=== PATIENT | female | born 1995 | race Caucasian/White ===

== ENCOUNTER 2024-09-12 21:49 | Emergency (ER) | payer BC ==
[~2024-09-12] VITALS: Ht 162.6 cm; Wt 74.8 kg
[2024-09-12 22:05] VITALS: BP 132/81; TEMP 98.5; O2SAT 98
[2024-09-13] MEDS ORDERED: NAPR-1009 PO (00:14)
[2024-09-13 03:09] LABS: PREGNANCY TEST URINE QUAL NEGATIVE (NEGATIVE)
== END 2024-09-13 00:24 | disposition home or self-care (01) ==
LOC: ER 21:56
DX: S99.821A Other specified injuries of right foot, initial encounter (principal); W11.XXXA Fall on and from ladder, initial encounter; Y93.89 Activity, other specified; Y92.89 Other specified places as the place of occurrence of the external cause; Y99.8 Other external cause status
CPT/HCPCS: 73610-TC; 73630-TC; 84703-TC